=== PATIENT | female | born 1995 | race Caucasian/White ===

== ENCOUNTER 2016-11-01 05:44 | Day surgery (SDC) | payer OTHER ==
[2016-10-31 10:46] VITALS: BMI 23.4
[~2016-11-01] VITALS: Ht 160 cm; Wt 59.0 kg
[2016-11-01] VITALS (10 sets, daily range): BP systolic 79–112; BP diastolic 49–80; PULSE 66–78; RESP 14–22; Ht 160 cm; Wt 59.0 kg
[2016-11-01 06:55] LABS: ADD SCAN DIFF NO
[2016-11-01 07:03] LABS: BASOPHILS % 0.3 % (0.0-2.0); EOSINOPHILS # 0.2 10^3/ul (0.0-0.5); EOSINOPHILS % 2.6 % (0.0-7.0); HEMATOCRIT 37.1 % (37.0-47.0); HEMOGLOBIN 12.3 g/dl (12.0-16.0); LYMPHOCYTES # 2.3 10^3/ul (0.8-2.9); LYMPHOCYTES % 37.6 % (15.0-51.0); MEAN CORPUSCULAR HEMOGLOBIN 28.6 pg (29.0-33.0); MEAN CORPUSCULAR HGB CONC 33.2 g/dl (32.0-37.0); MEAN CORPUSCULAR VOLUME 86.3 fl (82.0-101.0); MEAN PLATELET VOLUME 10.9 fl (7.4-10.4); MONOCYTE # 0.5 10^3/ul (0.3-0.9); MONOCYTES % 8.6 % (0.0-11.0); NEUTROPHIL # 3.1 10^3/ul (1.6-7.5); NEUTROPHILS % 50.7 % (39.0-77.0); PLATELET COUNT 287 10^3/UL (140-415); RED CELL DISTRIBUTION WIDTH 13.4 % (11.5-14.5)
[2016-11-01 07:14] LABS: POTASSIUM 3.9 mmol/L (3.5-5.1)
[2016-11-01 07:15] LABS: INR 0.96; PROTIME 12.8 Sec (12.2-14.2)
[2016-11-01 07:16] LABS: PARTIAL THROMBOPLASTIN TIME 28.6 Sec (25.0-35.0)
[2016-11-01 07:17] LABS: CALCIUM 9.4 mg/dl (8.4-10.2); CREATININE 0.67 mg/dl (0.44-1.00)
[2016-11-01] MEDS ORDERED: BUPIVACAINE 0.5% (SDV) 30 ML INJ ONE (07:44)
[2016-11-01] MEDS ORDERED: POVIDONE IODINE 10% 28.4 GM OINT ONE (07:44)
[2016-11-01] MEDS ORDERED: LIDOCAINE 1% (MPF) 30 ML INJ ONE (07:44)
[2016-11-01] MEDS ORDERED: DEXAMETHASONE 4 MG/ML 1 ML INJ ONE ×2 (07:44→08:14)
[2016-11-01] MEDS ORDERED: FENTAnyl 50 MCG/ML VIAL ONE (07:53)
[2016-11-01] MEDS ORDERED: MIDAZOLAM 1 MG/ML 2 ML INJ ONE (07:53)
[2016-11-01] MEDS ORDERED: PROPOFOL 20 ML ONE (07:53)
--- NOTE | 2016-11-01 07:57 | HPN ---
Date/Time of Note Date/Time of Note DATE: 11/01/16 TIME: 07:57 Interval H&P Admission Note Pt. seen H&P reviewed: No system changes ADRIANA SAMAYOA DPM Nov 01, 2016 07:57
[2016-11-01] MEDS ORDERED: LIDOCAINE 1% (MDV) 20 ML INJ ONE (08:05)
[2016-11-01] MEDS ORDERED: CEFAZOLIN 1 GM INJ ONE (08:10)
[2016-11-01] MEDS ORDERED: ONDANSETRON 4 MG INJ ONE (08:14)
[2016-11-01] MEDS ORDERED: FAMOTIDINE 20 MG INJ ONE (08:14)
--- NOTE | 2016-11-01 10:12 | OPR ---
DATE OF OPERATION: 11/01/2016 PREOPERATIVE DIAGNOSIS: Cyst, left foot. POSTOPERATIVE DIAGNOSIS: Cyst, left foot. PROCEDURE: Excision of a cyst, left foot. SURGEON: Adriana Contreras DPM DESCRIPTION OF PROCEDURE: The patient was brought to the surgical suite, placed in the supine position. The patient had a sterile prep and drape and had a tourniquet on the mid thigh. The patient had a diagnosis consistent with the preop diagnosis. The patient was under general anesthesia. The first incision was a longitudinal incision semielliptical going approximately 2 cm in length and going on the medial aspect of the cyst, and then a semielliptical incision connecting the 2 ends of the other semielliptical incision was made on the lateral aspect going around the cyst. The incision was carried deep and the cyst was identified and area was resected. The area was cleansed and there were no signs left of any of the cyst. The tissue and then the skin was coapted using 5-0 nylon. An injection of 0.5% Marcaine was done to prolong anesthesia. A dressing of 1/2-inch Steri-Strips, Betadine ointment, 4 x 4s impregnated with Betadine solution and Marbin with an outer layer of Coban made into a semi-compressive dressing. The patient tolerated surgery well, was returned to recovery room in satisfactory condition. There was minimum blood loss and no complications. Dictated By: ADRIANA LAZO/CAITIE Conf#: [id number] DID#: [id number] MTDD
--- NOTE | 2016-11-01 10:27 | PREOPHP ---
DATE OF ADMISSION: 11/01/2016 HISTORY OF PRESENT ILLNESS: The patient is being admitted to the hospital for elective foot surgery , palliative treatment unsuccessful. The patient has been explained surgery, complications, and alt ernatives and elected to have elective foot surgery. The patient points to the distal and dorsal as pect at the height of the ankle joint on the left foot a little what looks like vascular cyst. ALLERGIES: THE PATIENT DENIES ANY. MEDICATIONS: Denies taking any medicine. PAST MEDICAL HISTORY: Denies any history of heart, lung, liver, kidney, or thyroid problems. Denie s any history of diabetes. SOCIAL HISTORY: Does not smoke or drink. PHYSICAL EXAMINATION: See any other pertinent history and upper extremity physical exam by Dr. Jenna hilton. PHYSICAL EXAMINATION: LOWER EXTREMITY: Shows a DP and PT equal and regular. NEUROLOGICAL: Negative for pathology. DERMATOLOGIC: Shows a dark cyst on the dorsal and distal part at the height of the ankle. MUSCULOSKELETAL: Negative for pathology. FINAL DIAGNOSES: Cyst, left foot. Dictated By: ADRIANA LAZO/CAITIE Conf#: [id number] DID#: [id number]
== END 2016-11-01 10:20 | disposition home or self-care (01) ==
LOC: SDS 05:44
PROVIDERS: ATTEND Podiatrist
DX: I83.892 Varicose veins of left lower extremity with other complications (principal); L72.9 Follicular cyst of the skin and subcutaneous tissue, unspecified
CPT/HCPCS: 11402; 80048; 84703; 85025; 85610; 85730; 88304; 88311; J0690; J1100; J2250; J2405; J3010; L3260; L4386; Z7512; Z7610